=== PATIENT | female | born 1950 | race American Indian/Alaskan Native ===

== ENCOUNTER 2017-10-10 17:30 | Emergency (ER) | payer MEDICARE ==
[2017-10-10 18:27] LABS: BILIRUBIN,URINE NEGATIVE (NEG); CLARITY,URINE CLEAR; COLOR,URINE YELLOW; GLUCOSE,URINE >=1000 mg/dL (NEG); NITRITE,URINE POSITIVE (NEG); PH,URINE 5.5; PROTEIN,URINE NEGATIVE (NEG-TRACE)
[2017-10-10 18:32] LABS: AMPHETAMINE/METHAMPHETAMINE NEG (NEG); BACTERIA,URINE MANY /HPF (0-FEW); BARBITURATES NEG (NEG); BENZODIAZEPINES NEG (NEG); CANNABINOIDS NEG (NEG); COCAINE NEG (NEG); ETHANOL, URINE NEG (NEG); METHADONE NEG (NEG); OPIATES NEG (NEG); PHENCYCLIDINE NEG (NEG); RBC,URINE OCC /HPF (0-2); SQUAMOUS EPITHELIAL CELL,UR FEW /LPF
[2017-10-10 18:39] LABS: ADD MAN DIFF? NO
[2017-10-10] MEDS: IV NORMAL SALINE 1000ML BAG 1,000 ML IV ×2 (18:40→20:49)
[2017-10-10] MEDS: ONDANSETRON PF 4 MG/2 ML VIAL. IV (18:41)
[2017-10-10 18:42] LABS: BASO # 0.1 x10^3/uL (0.0-0.2); BASO % 1 % (0-3); EOS # 0.1 x10^3/uL (0.0-0.7); EOS % 2 % (0-3); HEMOGLOBIN 13.6 g/dL (12.0-15.5); LYMPH # 1.8 x10^3/uL (1.0-4.8); LYMPH % 29 % (24-48); MEAN CORPUSCULAR HEMOGLOBIN 34 pg (25-35); MEAN CORPUSCULAR HGB CONC 35 g/dL (31-37); MEAN CORPUSCULAR VOLUME 99 fL (79-100); MONO # 0.5 x10^3/uL (0.0-1.1); MONO % 8 % (0-9); NEUT # 3.9 x10^3uL (1.8-7.7); NEUT % 61 % (31-73); PLATELET COUNT 247 x10^3/uL (140-400); RED BLOOD COUNT 3.96 x10^6/uL (3.50-5.40); RED CELL DISTRIBUTION WIDTH 12.9 % (11.5-14.5); WHITE BLOOD COUNT 6.4 x10^3/uL (4.0-11.0)
[2017-10-10] MEDS: PANTOPRAZOLE IV PUSH 40 MG VIAL. IVP (18:44)
[2017-10-10 18:53] LABS: BLOOD UREA NITROGEN 11 mg/dL (7-20); BUN/CREATININE RATIO 14 (6-20); CALCIUM 8.5 mg/dL (8.5-10.1); CARBON DIOXIDE 27 mmol/L (21-32); CHLORIDE 102 mmol/L (98-107); CREATININE 0.8 mg/dL (0.6-1.0); GFR 71.1; GLUCOSE 410 mg/dL (70-99); POTASSIUM 3.6 mmol/L (3.5-5.1); SODIUM 137 mmol/L (136-145)
[2017-10-10 18:54] LABS: ANION GAP 8 (6-14)
[2017-10-10 18:54] LABS: ETHANOL < 10 mg/dL (0-10)
[2017-10-10 18:56] LABS: PARTIAL THROMBOPLASTIN TIME 29 SEC (24-38); PROTHROMBIN TIME PATIENT 12.9 SEC (11.7-14.0)
[2017-10-10 18:59] LABS: ALBUMIN 3.5 g/dL (3.4-5.0); ALK PHOS 120 U/L (46-116); ALT (SGPT) 27 U/L (14-59); AST (SGOT) 19 U/L (15-37); LIPASE 163 U/L (73-393); MAGNESIUM 1.8 mg/dL (1.8-2.4); TOTAL BILIRUBIN 0.5 mg/dL (0.2-1.0); TOTAL PROTEIN 6.9 g/dL (6.4-8.2)
[2017-10-10] MEDS ORDERED: IOHEXOL 300 MG/ML 100ML VIAL. IV (19:00)
[2017-10-10 19:01] LABS: TROPONINI < 0.017 ng/mL (0.000-0.055)
[2017-10-10 19:06] LABS: CKMB INDEX 0.6 % (0-4); CKMB MASS 2.1 ng/mL (0.0-3.6); CREATINE KINASE 358 U/L (26-192)
[2017-10-10 19:06] LABS: NT-PRO BNP 33 pg/mL (0-124)
[2017-10-10 19:07] LABS: THYROID STIM HORMONE (TSH) 1.402 uIU/mL (0.358-3.74)
[2017-10-10] MEDS: INSULIN REGULAR 100 UNIT/ML 3ML VIAL. IV (20:47)
[2017-10-10 21:23] LABS: POC GLUCOSE 119 mg/dL (70-99)
== END 2017-10-10 21:35 | disposition home or self-care (01) ==
LOC: ER 21:35
DX: N39.0 Urinary tract infection, site not specified (principal); E11.65 Type 2 diabetes mellitus with hyperglycemia; I10 Essential (primary) hypertension; E78.00 Pure hypercholesterolemia, unspecified; M19.90 Unspecified osteoarthritis, unspecified site; Z88.6 Allergy status to analgesic agent; Z88.5 Allergy status to narcotic agent; Z90.49 Acquired absence of other specified parts of digestive tract; Z86.73 Personal history of transient ischemic attack (TIA), and cerebral infarction without residual deficits
CPT/HCPCS: 36415; 80053; 80307; 81001; 82553; 82962; 83690; 83735; 83880; 84443; 84484; 85025; 85610; 85730; 87086; 87186; 93005; 96365; 96375; 99285-25; C9113; G0480; J0690; J1815; J2405; J7030

== ENCOUNTER 2018-06-06 16:03 | Emergency (ER) | payer MEDICARE ==
[~2018-06-06] VITALS: Ht 154.9 cm; Wt 78.9 kg
[~2018-06-06 16:03] MED LIST: AMOX250S20 PO; AMOX875T PO; CALC1TAB67 PO; CEPH500T PO; CHOL200024 PO; CIPR250T30 PO; CIPR500T94 PO; CLOP75TA PO; CYAN100031 PO; ESCITALOPRAM OX10 MG PO; HYDR-2761 PO; IBUP200T44 PO; LISI-338 PO; LISI10TA2 PO; METF10007 PO; NYST100054 PO; OXYB5TAB7 PO; RANI150T2 PO; SIMV10TA3 PO; SIMV40TA3 PO; TAMS0.4C97 PO; b12; d3
[2018-06-06] MEDS ORDERED: LIDOCAINE 1%/EPI 1:100,000 20 ML VIAL. INJ ONE (16:45)
--- NOTE | 2018-06-06 17:00 | RAD ---
CT HEAD AND CERVICAL SPINE WO Indication: FALL, HEAD INJURY Exposure: One or more of the following individualized dose reduction techniques were utilized for this examination: 1. Automated exposure control 2. Adjustment of the mA and/or kV according to patient size 3. Use of iterative reconstruction technique. Comparison: None are available. Contrast: None HEAD: Posterior fossa is unremarkable. No evidence of acute intracranial hemorrhage or abnormal extra-axial fluid collection. No evidence of mass effect or midline shift. Low-density in the white matter bilaterally, a nonspecific finding, but which is commonly due to chronic small vessel ischemic disease in a patient of this age. Prominence of ventricles and sulci, compatible with involutional change or atrophy. Intracranial arterial calcifications are identified. Visualized orbits are unremarkable. Visualized paranasal sinuses and mastoids are clear. No evidence of depressed skull fracture. There is swelling and density in the right frontal scalp, compatible with a hematoma. Impression: Right frontal scalp hematoma. Chronic intracranial findings as discussed above. No evidence of acute intracranial hemorrhage or mass effect. CERVICAL SPINE: C1 ring: Intact Cervico-occipital junction: Intact C1-C2 relationship: Within normal limits Fracture: No acute fracture identified. Spondylosis: Degenerative spondylosis, greatest at C5-C6. This results in mild osseous effacement of the spinal canal and encroachment upon the neural foramina. Alignment: Reversal of the normal cervical lordosis, can be due to muscle spasm or positioning. Facets: No evidence of perched or locked facet. Prevertebral soft tissues: No significant swelling or hematoma Thyroid: Symmetric Lung apices: Clear Impression: Degenerative spondylosis. No evidence of acute fracture or subluxation. Electronically signed by: Alfredo Cantrell MD (06/06/2018 4:56 PM) [place] [id number]
--- NOTE | 2018-06-06 17:10 | PHYS DOC ---
Past Medical History Past Medical History: Arthritis, CVA, Diabetes-Type II, High Cholesterol, Hypertension Past Surgical History: Cholecystectomy, Other Additional Past Surgical Histo: LEFT ARM SURGERY, BLADDER LIFT, GALLSTONES, RIGHT ANKLE Alcohol Use: None Drug Use: None Adult General Chief Complaint Chief Complaint: LACERATION/AVULSION [facility] HPI Patient is a 68 year old female who presents with forehead laceration. Patient was shopping at a local retail establishment when she tripped on a rug and fell forward. She was unable to catch herself with her hands. She struck her head on the floor. She sustained a laceration over the right orbit and the 4 head. The patient did not have loss of consciousness. She primarily complains of laceration. Her last shot was less than 5 years earlier. Denies cervical neck pain. Review of Systems Review of Systems Constitutional: Denies fever or chills Eyes: Denies change in visual acuity, redness, or eye pain HENT: Denies Respiratory: Denies Cardiovascular: No additional information not addressed in HPI GI: Denies nausea : Denies Musculoskeletal: Denies back pain Integument: Denies rash or skin lesions Neurologic: Denies headache, or focal neurologic complaints All other systems were reviewed and found to be within normal limits, except as documented in this note. Current Medications Current Medications Current Medications Medications (Trade) Dose Ordered Sig/[facility] Start Time Stop Time Status Last Admin Dose Admin Lidocaine/ Epinephrine (LIDOCAINE 1%-EPI 1:100,000 Multi-Dose) 20 ml 1X ONCE 06/06/18 16:45 06/06/18 16:46 DC 06/06/18 17:04 20 ML Allergies Allergies Allergies Coded Allergies Type Severity Reaction Last Updated Verified aspirin Allergy Intermediate 06/06/18 Yes meperidine Allergy Intermediate 06/06/18 Yes Physical Exam Physical Exam Constitutional: Well developed, well nourished, no acute distress, non-toxic appearance HENT: Normocephalic, bilateral external ears normal, oropharynx moist, no oral exudates, nose normal, 2 cm laceration over right forehead extending to the lateral aspect near (but not involving) the temporal canthus of the right eye. Eyes: PERRLA, EOMI, conjunctiva normal, no discharge Neck: Normal range of motion, no tenderness, supple Cardiovascular:Heart rate regular rhythm, no murmur Lungs & Thorax: Bilateral breath sounds clear to auscultation Skin: Warm, dry, no erythema, no rash Back: No tenderness Extremities: No tenderness, no edema or additional injuries Neurologic: Alert and oriented X 3, normal motor function, normal sensory function Psychologic: Affect normal Current Patient Data Vital Signs Vital Signs Date Time Temp Pulse Resp B/P (MAP) Pulse Ox O2 Delivery O2 Flow Rate FiO2 06/06/18 17:13 88 18 137/61 (86) 97 Room Air 06/06/18 16:03 97.9 97.9 EKG EKG [] Radiology/Procedures Radiology/Procedures HEAD: Posterior fossa is unremarkable. No evidence of acute intracranial hemorrhage or abnormal extra-axial fluid collection. No evidence of mass effect or midline shift. Low-density in the white matter bilaterally, a nonspecific finding, but which is commonly due to chronic small vessel ischemic disease in a patient of this age. Prominence of ventricles and sulci, compatible with involutional change or atrophy. Intracranial arterial calcifications are identified. Visualized orbits are unremarkable. Visualized paranasal sinuses and mastoids are clear. No evidence of depressed skull fracture. There is swelling and density in the right frontal scalp, compatible with a hematoma. Impression: Right frontal scalp hematoma. Chronic intracranial findings as discussed above. No evidence of acute intracranial hemorrhage or mass effect. CERVICAL SPINE: C1 ring: Intact Cervico-occipital junction: Intact C1-C2 relationship: Within normal limits Fracture: No acute fracture identified. Spondylosis: Degenerative spondylosis, greatest at C5-C6. This results in mild osseous effacement of the spinal canal and encroachment upon the neural foramina. Alignment: Reversal of the normal cervical lordosis, can be due to muscle spasm or positioning. Facets: No evidence of perched or locked facet. Prevertebral soft tissues: No significant swelling or hematoma Thyroid: Symmetric Lung apices: Clear Impression: Degenerative spondylosis. No evidence of acute fracture or subluxation. Course & Med Decision Making Course & Med Decision Making Pertinent Labs and Imaging studies reviewed. (See chart for details) Patient is evaluated in the ER for a minor laceration of the forehead. She did undergo CT scan of the head and cervical spine and there are no acute findings. Suturing was performed. See the procedure note below. Following this, the patient was discharged to home. She was advised to follow-up with her primary care doctor who is [place] of state to have the sutures removed in 5 days. Procedure note: laceration repair, right forehead. The area was cleansed with normal saline and the wound was irrigated. Local anesthesia was provided with 1 % lidocaine with epinephrine. A total of 2 mL were used. 7 simple interrupted sutures were placed using 5-0 Prolene. The wound edges were well approximated and the wound was hemostatic at the conclusion of the procedure. The total length was approximately 2 cm. Patient tolerated well. A clean dry dressing was placed per nursing staff. Dragon Disclaimer Dragon Disclaimer This electronic medical record was generated, in whole or in part, using a voice recognition dictation system. Departure Departure Disposition: HOME, SELF-CARE Condition: GOOD Referrals: UNKNOWN PCP NAME (PCP) VJ MANNING DO Jun 06, 2018 17:10
[2018-06-06 17:13] VITALS: BP 137/61
--- NOTE | 2018-06-07 09:12 | RAD ---
Right hand, 3 views, 06/06/2018: HISTORY: Fall, pain The bony structures are demineralized. There are mild scattered degenerative changes. A faint oblique lucency projected over the distal end of the proximal phalanx of the middle finger on one view is probably due to a summation of shadows rather than a nondisplaced fracture. Correlation with the site of the patient's current pain is suggested. No definite fracture is seen. IMPRESSION: No acute bony abnormality is detected. Right wrist, 3 views, 06/06/2018: No fracture or dislocation is identified. IMPRESSION: No acute bony abnormality is detected. Right forearm, 2 views, 06/06/2018: No acute fracture or bony abnormality is detected. IMPRESSION: No acute bony abnormality is identified. Electronically signed by: Andrew Mays MD (06/07/2018 9:07 AM) [facility]
== END 2018-06-06 17:20 | disposition home or self-care (01) ==
LOC: ER 16:03
DX: S01.81XA Laceration without foreign body of other part of head, initial encounter (principal); E78.00 Pure hypercholesterolemia, unspecified; I10 Essential (primary) hypertension; E11.9 Type 2 diabetes mellitus without complications; Z86.73 Personal history of transient ischemic attack (TIA), and cerebral infarction without residual deficits; Z88.1 Allergy status to other antibiotic agents; Z88.6 Allergy status to analgesic agent; W01.198A Fall on same level from slipping, tripping and stumbling with subsequent striking against other object, initial encounter; Y93.89 Activity, other specified; Y92.89 Other specified places as the place of occurrence of the external cause; Y99.8 Other external cause status
CPT/HCPCS: 12011; 70450; 72125; 73090; 73110; 73130; 99284; J3490

== ENCOUNTER 2018-06-06 22:00 | Emergency (ER) | payer MEDICARE ==
[2018-06-06 17:13] VITALS: BP 137/61
[2018-06-06] MEDS ORDERED: HYDROcodone/APAP 5/325MG 1 TAB TABLET PO ONE (22:32)
[2018-06-06] MEDS ORDERED: IBUPROFEN 600 MG TABLET. PO ONE ×2 (22:32→22:35)
[2018-06-06] MEDS ORDERED: HYDROcodone/APAP 5/325MG 1 TAB TABLET ONE (22:36)
== END 2018-06-06 23:57 | disposition left against medical advice (07) ==
LOC: ER 22:00
DX: M25.539 Pain in unspecified wrist (principal); Z53.21 Procedure and treatment not carried out due to patient leaving prior to being seen by health care provider